=== PATIENT | female | born 1965 | race Two or more races ===

== ENCOUNTER 2024-04-23 18:20 | Emergency (ER) | payer SELFPAY ==
[2024-04-23] MEDS ORDERED: SODIUM CHLORIDE 0.9% 1,000 ML IV ONE (18:45)
[2024-04-23 19:00] VITALS: O2SAT 100
[2024-04-23 20:15] VITALS: BP 116/61; PULSE 84; RESP 26; TEMP 37.2
== END 2024-04-23 20:20 | disposition left against medical advice (07) ==
LOC: ER 18:20
DX: I95.9 Hypotension, unspecified (principal); R55 Syncope and collapse; Z53.29 Procedure and treatment not carried out because of patient's decision for other reasons
CPT/HCPCS: 82962; 99282; J7030